=== PATIENT | female | born 1985 | race African-American/Black ===

== ENCOUNTER 2018-07-06 11:05 | Outpatient (CLI) | payer OTHER ==
--- NOTE | 2018-07-06 12:04 | ULT ---
FObstetrical ultrasound: 07/06/2018 COMPARISON:None available HISTORY: 32-year-old female undergoing evaluation of size, dates, and anatomy TECHNIQUE: Multiplanar grayscale sonographic imaging of the gravid uterus obtained. FINDINGS: Single live intrauterine gestation present demonstrating a vertex presentation. Cervical le ngth is estimated at 3.2 cm. Placenta is located in an anterior fundalposition, with no evidence for previa or abruption. The stomach, kidneys, and heart appear grossly unremarkable. heart rate is 156 bpm. Umbil ical cord insertion, urinary bladder, umbilical cord, nose and lips, spine, and intracranial contents appear grossly unremarkable. Amniotic fluid index is 16.6cm. biometry: Biparietal diameter is 6.7cm, correlating with a 27 weeks 1 daygestation Head circumference is 25.5cm correlating with a 27 weeks 6 daysgestation Abdominal circumference is 24.1cm correlating with a 28 weeks 3 daysday gestation Femur length is 4.5cm correlating with a 25 weeks 1 daysday gestation Average age based on ultrasound is 27 weeks 1 days with estimated date of delivery on 10/04/2018. Estimated weight is 1025 g +/- 150 g. Weight percentile based on last menstrual period is 94th percentile. IMPRESSION: Single intrauterine gestation as detailed above.
== END 2018-07-06 11:06 | disposition home or self-care (01) ==
LOC: BICULT 11:05
PROVIDERS: ATTEND Family Medicine
DX: Z34.82 Encounter for supervision of other normal pregnancy, second trimester (principal); Z3A.27 27 weeks gestation of pregnancy
CPT/HCPCS: 76805

== ENCOUNTER 2018-07-08 14:24 | Day surgery (SDC) | payer OTHER ==
[2018-07-08 15:27] VITALS: BP 116/77; TEMP 99.7; BMI 47.9
--- NOTE | 2018-07-08 15:56 | PDOC.LDHP ---
Labor and Delivery H&P Chief complaint: contractions, abdominal pain HPI: 32 @27wks here for contractions. States her contractions started yesterday, but hasn't been timing them. She can't tell how frequent they are apart. She denies LOF, VB, dysuria, vaginal discharge. Endorses good movement. Current gestational age (weeks): 27 Due date: 10/07/18 Dating criteria: second trimester ultrasound Grav: 3 Para: 3 (1103) OB History Details: X2 hx of PPROM with twin gestation @ 32 weeks, two males First @ 38wks to a male, no complications Current complications: none Abnormal US findings: No Past Medical History: Anemia of Current medications: pre- vitamins, iron Previous surgical history: none Allergies/Adverse Reactions: Allergies Allergy/AdvReac Type Severity Reaction Status Date / Time No Known Allergies Allergy Unverified 07/08/18 15:27 Social history: none - Physical Exam Vital signs reviewed and normal: yes General: NAD Heart: RRR Lungs: CTAB Extremeties: no edema [place] contractions every: reactive; not diana on the monitor - Vaginal Exam cm dilated: 0 (closed/thick/high) - Assessment 32 yo @ 27wks with contractions: - Plan -: #1)sIUP #2)Abdominal pain/suprapubic pressure vs contractions -rule out labor -pt being monitored on the NST, cervical check: closed/thick/high -ordered UA, VP3 for other etiologies of pain/contractions -encouraged po hydration
[2018-07-08 16:58] LABS: Bilirubin Negative (Negative); Blood, Urine Negative (Negative); Clarity CLEAR (Clear); Glucose, Urine (Dipstick) Negative (Negative); Leukocyte Negative (Negative); Nitrite Negative (Negative); Protein, Urine (Dipstick) Trace mg/dL (Neg-Trace); Specific Gravity, Urine 1.023 (1.002-1.036)
[2018-07-08 16:59] LABS: Bacteria/HPF None Seen HPF (None Seen); Hyaline Casts/LPF 4-6 HYALINE CAST LPF (0-3 Hyaline); Pathc Cast-AUWi Flag 1.08 (0-2.49); RBC/HPF 0-3 HPF (0-3); WBC/HPF 0-3 HPF (0-3)
== END 2018-07-08 17:20 | disposition home or self-care (01) ==
LOC: L&D/OP 14:24 → ERS 14:24 → L&D/OP 14:24 → EDSTATUS 14:35 → L&D/OP 17:20
PROVIDERS: ATTEND Family Medicine
DX: O47.1 False labor at or after 37 completed weeks of gestation (principal); O99.012 Anemia complicating pregnancy, second trimester; Z3A.27 27 weeks gestation of pregnancy
CPT/HCPCS: 81001; 87480; 87510; 87660; 99284

== ENCOUNTER 2018-07-23 10:29 | Observation (INO) | payer OTHER ==
[2018-07-23 11:24] VITALS: BMI 46.7
[2018-07-23 12:56] LABS: #Lymphocytes 1.9 thou/uL (1.20-3.40); #Monocytes 0.7 thou/uL (0.11-0.59); #Neutrophils 4.9 thou/uL (1.40-6.50); %Basophils 0.4 % (0.0-1.0); %Eosinophils 0.5 % (0.0-10.0); %Lymphocytes 25.2 % (21.0-51.0); %Monocytes 9.6 % (0.0-10.0); %Neutrophils 64.3 % (42.0-75.0); Hemoglobin 10.9 g/dL (12.0-16.0); Mean Corpuscular HGB CONC 32.7 g/dL (32.0-36.0); Mean Corpuscular Hemoglobin 27.4 pg (27.0-31.0); Mean Corpuscular Volume 83.9 fL (78.0-98.0); Mean Platelet Volume 8.2 fL (7.4-10.4); Platelet Count 253 thou/uL (130-400); RBC Distribution Width 15.8 % (11.5-14.5); Red Blood Cell (RBC) Count 3.96 mill/uL (4.20-5.40); White Blood Cell (WBC) Count 7.6 thou/uL (4.8-10.8)
--- NOTE | 2018-07-23 13:01 | ULT ---
OB ULTRASOUND: HISTORY: Preeclampsia. FINDINGS: A single live intrauterine gestation is seen with measurements corresponding to an estimated gestatio nal age of 29 weeks 4 days and DANA at 10/04/2018. The estimated weight measures 1428 gm or 3 adolfo nds and 2 ounces. This corresponds to a percentile of 39 by Hadlock criteria. measurements are as follows: BPD 7.31 cm, 29 weeks 2 days HC 27.16 cm, 29 weeks 4 days AC 25.71 cm, 29 weeks 6 days FL 5.57 cm, 29 weeks 2 days JUANA measures 16.9 cm. The placenta is anteriorly located without evidence of placenta previa. heart rate measures 140 b.p.m. The peak systolic velocity in the umbilical artery measures 71 cm/s with an end-diastolic velocity of 25 cm/s and an S-D ratio of 2.82. The anatomy is not satisfactorily visualized/evaluated. IMPRESSION: Single live intrauterine of 29 weeks 4 days estimated gestational age and estimated date of delivery at 10/04/2018. POS: [facility]
[2018-07-23 13:10] LABS: Creatinine, Urine 243.64 mg/dL (47-110)
[2018-07-23 13:21] LABS: ALT (SGPT) 11 U/L (8-55); AST (SGOT) 14 U/L (5-34); Albumin 2.9 g/dL (3.5-5.0); Alkaline Phosphatase 227 U/L (40-150); Anion Gap 12 mmol/L (10-20); BUN (Urea Nitrogen) 8 mg/dL (7.0-18.7); Bilirubin, Total Less than 0.2 mg/dL (0.2-1.2); Calc. Creatinine Clearance 228 mL/min (70-130); Calcium 9.5 mg/dL (7.8-10.44); Carbon Dioxide 21 mmol/L (22-29); Chloride 107 mmol/L (98-107); Estimated GFR-MDRD Greater than 90; Globulin 3.7 g/dL (2.4-3.5); Glucose 62 mg/dL (70-105); Potassium 3.9 mmol/L (3.5-5.1); Protein, Total 6.6 g/dL (6.0-8.3); Sodium 136 mmol/L (136-145); Uric Acid 3.9 mg/dL (2.6-6.0)
[2018-07-23] MEDS ORDERED: Acetaminophen 500 MG TAB PO PRN (19:18)
[2018-07-23] MEDS ORDERED: Loratadine 10 MG TAB PO PRN (19:19)
[2018-07-24 15:56] LABS: Urine Total Volume 2150 mL (600-1600)
[2018-07-24] MEDS ORDERED: Betamet Acet/Betamet Na Ph 30 MG/5 ML VIAL IM SCH (16:00)
[2018-07-24 16:17] LABS: Protein - 24 Hr 430 mg/24 hr (Less than 300); Protein, Urine 20 mg/dL (1-14)
[2018-07-25 11:41] VITALS: BP 129/65; TEMP 98.7
[2018-07-25] MEDS ORDERED: Betamet Acet/Betamet Na Ph 30 MG/5 ML VIAL IM SCH (16:00)
== END 2018-07-25 16:05 | disposition home or self-care (01) ==
LOC: L&D 10:29 → INTOOBSV 10:29 → 3SE 07-24 00:55
PROVIDERS: ADMIT Family Medicine; ATTEND Family Medicine
DX: O14.93 Unspecified pre-eclampsia, third trimester (principal); Z79.899 Other long term (current) drug therapy; Z3A.30 30 weeks gestation of pregnancy
CPT/HCPCS: 36415; 51701; 59025; 76700; 76805; 80053; 82570; 84156; 84550; 85025; 96372; A4353; G0378; J0702

== ENCOUNTER 2018-07-29 22:58 | Inpatient (IN) | payer OTHER ==
[2018-07-29 23:28] VITALS: BMI 46.7
[2018-07-29] MEDS ORDERED: Butorphanol Tartrate 1 MG/ML VIAL SLOW IVP PRN (23:45)
[2018-07-29] MEDS ORDERED: Ondansetron PF 4 MG/2 ML Vial IVP PRN (23:45)
[2018-07-29] MEDS ORDERED: Lactated Ringer's 1,000 ML IV SCH (23:45)
[2018-07-29] MEDS ORDERED: Promethazine HCl 25 MG/ML VIAL IM PRN (23:45)
[2018-07-29] MEDS ORDERED: Metoclopramide HCl 10 MG/2 ML VIAL IVP SCH (23:45)
[2018-07-29] MEDS ORDERED: Acetaminophen 500 MG TAB PO PRN (23:47)
[2018-07-29] MEDS ORDERED: diphenhydrAMINE 25 MG CAP PO PRN (23:48)
--- NOTE | 2018-07-29 23:55 | PDOC.LDHP ---
Labor and Delivery H&P Chief complaint: other (High BP at home and ZENDEJAS) HPI: Patient of Dr Murphy Time: 2355 Location: L&D HPI: 32 yo AA (twins x 1 in past delivered vaginal) at 30 weeks 4 days, here last week for BP obs. her 24 hour urine protein last week was 430mg/24. Labs were otherwise normal then. She states she had BP of 170 at home, and headache. BPs here 134/80 and 144/82. No meds for HTN in past Review of Systems: complete ROS performed and as per HPI Current gestational age (weeks): 30 (4 days) Dating criteria: last menstrual period Grav: 3 Para: 2 OB History Details: One set of twins, vaginal Current complications: other (Preeclampsia) Abnormal US findings: No Current medications: pre- vitamins Previous surgical history: none Allergies/Adverse Reactions: Allergies Allergy/AdvReac Type Severity Reaction Status Date / Time No Known Allergies Allergy Verified 07/29/18 23:29 Social history: none - Physical Exam Abnormal vital signs: 144/81 General: NAD Heart: RRR Lungs: CTAB Abdomen: gravid Extremeties: no edema FHT: category 1 [place] contractions every: no ctx - Assessment 30 weeks 4 days, multip, with preeclampsia (last 24 hour urine TP was 430mg). ZENDEJAS this pm. - Plan Plan: admit to L&D, other (I have admitted her for BP evaluation. Steroids given recently. I have reordered CMP and CBC but no UP as already known to be proteinuric. I will give meds for ZENDEJAS. I discussed with her and the family that we will try conservative management for as long as we can. She may require delivery at 34 weeks, if she lasts that long without persistent severe criteria. BPP ordered as survellance. I will give reglan and benadryl for headache care.)
[2018-07-30 00:35] LABS: Hemoglobin 10.7 g/dL (12.0-16.0); Mean Corpuscular HGB CONC 32.4 g/dL (32.0-36.0); Mean Corpuscular Hemoglobin 27.6 pg (27.0-31.0); Platelet Count 259 thou/uL (130-400); RBC Distribution Width 16.1 % (11.5-14.5); Red Blood Cell (RBC) Count 3.88 mill/uL (4.20-5.40); White Blood Cell (WBC) Count 9.2 thou/uL (4.8-10.8)
[2018-07-30 00:50] LABS: ALT (SGPT) 8 U/L (8-55); AST (SGOT) 9 U/L (5-34); Albumin 2.8 g/dL (3.5-5.0); Alkaline Phosphatase 207 U/L (40-150); Anion Gap 12 mmol/L (10-20); BUN (Urea Nitrogen) 8 mg/dL (7.0-18.7); Bilirubin, Total Less than 0.2 mg/dL (0.2-1.2); Calc. Creatinine Clearance 237 mL/min (70-130); Calcium 8.8 mg/dL (7.8-10.44); Carbon Dioxide 21 mmol/L (22-29); Chloride 109 mmol/L (98-107); Estimated GFR-MDRD Greater than 90; Globulin 3.4 g/dL (2.4-3.5); Glucose 108 mg/dL (70-105); Protein, Total 6.2 g/dL (6.0-8.3); Sodium 138 mmol/L (136-145)
[2018-07-30 01:06] LABS: Syphilis Antibody Nonreactive (Nonreactive); Syphilis Antibody Index 0.04 S/CO (<1.00 Non-Reactive)
[2018-07-30 01:45] LABS: HBSAg Index 0.28 S/CO (0-0.99); HIV (1/2) Antibody/Antigen Non-Reactive (NonReactive); Hep B Surf Ag Non-Reactive S/CO (NonReactive)
--- NOTE | 2018-07-30 08:38 | ULT ---
PRELIMINARY REPORT/[facility]/EMERGENCY AFTER HOURS PROCEDURE: EXAM: US Biophysical Profile Without Non-Stress Test EXAM DATE/TIME: 07/30/2018 1:39 AM CLINICAL HISTORY: 32 years old, female; Signs and symptoms; Other: Pih, eval well being; TECHNIQUE: Imaging protocol: US biophysical profile without non-stress testing. COMPARISON: No relevant prior studies available. FINDINGS: Other findings: Presentation: Vertex Amniotic fluid: 11.8 cm. Normal volume. not visualized well Breathin/2 Gross body movements: 2/2 tone: 2/2 Qualitative amniotic fluid: 2/2 Fetus: Single Heart rate: 143 bpm Placenta: Anterior. No abruption. Uterus: Unremarkable. No myometrial mass. Cervix: 4.1 cm as visualized. Closed. Free fluid: No free fluid. IMPRESSION: 1. Single viable intrauterine with EGA 30 weeks, 4 days by dates. 2. Biophysical 11/08. 3. No acute findings. Thank you for allowing us to participate in the care of your patient. Dictated and Authenticated by: Balaji Vazquez MD 07/30/2018 2:47 AM Central Time ([place] & [place]) FINAL REPORT EMERGENCY AFTER HOURS BIOPHYSICAL PROFILE: I agree with the preliminary report provided by [facility]. Please see the preliminary report for further d etails. POS:
[2018-07-30 18:00] VITALS: BP 136/71; TEMP 98.2
== END 2018-07-30 17:07 | disposition home or self-care (01) | DRG 833 ==
LOC: L&D/OP 22:58 → L&D 07-30 00:10
PROVIDERS: ADMIT Family Medicine; ATTEND Family Medicine
DX: O14.90 Unspecified pre-eclampsia, unspecified trimester (principal); Z3A.30 30 weeks gestation of pregnancy
CPT/HCPCS: 36415; 76819; 80053; 85027; 86780; 86850; 86900; 86901; 87340; 87389; 99285; J2765; Q0163

== ENCOUNTER 2018-08-06 10:32 | Outpatient (CLI) | payer OTHER ==
--- NOTE | 2018-08-06 11:18 | ULT ---
OBSTETRIC SONOGRAM LIMITED UMBILICAL ARTERY DUPLEX EXAM SONOGRAPHIC BIOPHYSICAL PROFILE EXAM: HISTORY: Preeclampsia. FINDINGS: Single intrauterine gestation in cephalic presentation. The cervix is closed and 3.5 cm. Placenta is anterior. Amniotic fluid index 12.3. Good tone, breathing movement, and gross movements were demonstrated . Good color and spectral Doppler flow within the umbilical artery. S/D ratio 3.3 (within normal limits) Resistive index 0.7 (approaches 95th percentile) Pulsatility index 1.2 (approaches 95th percentile) IMPRESSION: 1. Sonographic biophysical profile score 8/8. 2. Elevated resistive index and pulsatility index of the umbilical artery, approaching 95th percenti le. Transcribed Date/Time: 08/06/2018 11:44 AM
--- NOTE | 2018-08-08 13:40 | ULT ---
OBSTETRIC SONOGRAM LIMITED UMBILICAL ARTERY DUPLEX EXAM SONOGRAPHIC BIOPHYSICAL PROFILE EXAM: HISTORY: Preeclampsia. FINDINGS: Single intrauterine gestation in cephalic presentation. The cervix is closed and 3.5 cm. Placenta is anterior. Amniotic fluid index 12.3. Good tone, breathing movement, and gross movements were demonstrated . Good color and spectral Doppler flow within the umbilical artery. S/D ratio 3.3 (within normal limits) Resistive index 0.7 (approaches 95th percentile) Pulsatility index 1.2 (approaches 95th percentile) IMPRESSION: 1. Sonographic biophysical profile score 8/8. 2. Elevated resistive index and pulsatility index of the umbilical artery, approaching 95th percenti le. Transcribed Date/Time: 08/08/2018 1:40 PM
== END 2018-08-06 10:33 | disposition home or self-care (01) ==
LOC: ULT 10:32
PROVIDERS: ATTEND Family Medicine
DX: O16.3 Unspecified maternal hypertension, third trimester (principal)
CPT/HCPCS: 76700; 76819

== ENCOUNTER 2018-08-19 21:56 | Inpatient (IN) | payer OTHER ==
[2018-08-19 22:28] VITALS: BMI 50.0
[2018-08-19 22:53] LABS: Amnisure Test RUPTURE DETECTED (No Rupture)
[2018-08-19 22:54] LABS: Amnisure Internal Control QC ACCEPTABLE (ACCEPTABLE)
[2018-08-19] MEDS ORDERED: Promethazine HCl 25 MG/ML VIAL IM PRN (23:12)
[2018-08-19] MEDS ORDERED: Acetaminophen 500 MG TAB PO PRN (23:12)
[2018-08-19] MEDS ORDERED: Ondansetron PF 4 MG/2 ML Vial IVP PRN (23:12)
[2018-08-19] MEDS ORDERED: Azithromycin 250 MG TAB PO SCH (23:15)
[2018-08-19] MEDS: Lactated Ringer's 1,000 ML IV SCH (23:59)
[2018-08-20] MEDS: Betamet Acet/Betamet Na Ph 30 MG/5 ML VIAL IM SCH (00:24)
[2018-08-20] MEDS: Ampicillin 2 GM in Sodium Chloride 0.9% 100 ML IVPB SCH ×4 (00:27→18:05)
[2018-08-20 00:54] LABS: Hemoglobin 12.7 g/dL (12.0-16.0); Mean Corpuscular HGB CONC 30.5 g/dL (32.0-36.0); Mean Corpuscular Hemoglobin 27.4 pg (27.0-31.0); Mean Corpuscular Volume 89.8 fL (78.0-98.0); Mean Platelet Volume 8.5 fL (7.4-10.4); Platelet Count 223 thou/uL (130-400); RBC Distribution Width 16.2 % (11.5-14.5); Red Blood Cell (RBC) Count 4.64 mill/uL (4.20-5.40)
[2018-08-20 01:28] LABS: HBSAg Index 0.36 S/CO (0-0.99); HIV (1/2) Antibody/Antigen Non-Reactive (NonReactive); Hep B Surf Ag Non-Reactive S/CO (NonReactive)
[2018-08-20 04:47] LABS: Syphilis Antibody Nonreactive (Nonreactive); Syphilis Antibody Index 0.04 S/CO (<1.00 Non-Reactive)
[2018-08-20] MEDS: Lactated Ringer's 1,000 ML IV SCH (09:35)
[2018-08-21] MEDS: Betamet Acet/Betamet Na Ph 30 MG/5 ML VIAL IM SCH (00:17)
[2018-08-21] MEDS: Ampicillin 2 GM in Sodium Chloride 0.9% 100 ML IVPB SCH ×4 (00:18→17:51)
[2018-08-21] MEDS: Lactated Ringer's 1,000 ML IV SCH ×3 (00:18→15:50)
[2018-08-22] MEDS: Ampicillin 2 GM in Sodium Chloride 0.9% 100 ML IVPB SCH ×2 (00:07→06:21)
[2018-08-22] MEDS: AMOXicillin 250 MG CAP PO SCH ×3 (08:48→20:09)
[2018-08-22 17:42] LABS: Bilirubin Negative (Negative); Blood, Urine Negative (Negative); Clarity CLOUDY (Clear); Glucose, Urine (Dipstick) Negative (Negative); Leukocyte Negative (Negative); Nitrite Negative (Negative); Protein, Urine (Dipstick) Negative (Neg-Trace); Specific Gravity, Urine 1.011 (1.002-1.036); Urobilinogen 0.2 mg/dL (0.2-1.0); pH, Urine 7.5 (5.0-9.0)
[2018-08-22 17:46] LABS: Bacteria/HPF None Seen HPF (None Seen); Hyaline Casts/LPF 0-3 HYALINE CAST LPF (0-3 Hyaline); WBC/HPF 0-3 HPF (0-3)
[2018-08-22 18:08] LABS: RBC/HPF 0-3 HPF (0-3)
[2018-08-22 18:09] LABS: Urine Culture Reflex No No
[2018-08-23] MEDS: Betamet Acet/Betamet Na Ph 30 MG/5 ML VIAL IM SCH ×3 (00:02→23:26)
[2018-08-23] MEDS: Lactated Ringer's 1,000 ML IV SCH (00:55)
[2018-08-23] MEDS: AMOXicillin 250 MG CAP PO SCH ×3 (09:54→22:56)
[2018-08-24] MEDS: AMOXicillin 250 MG CAP PO SCH ×3 (12:55→21:10)
[2018-08-24] MEDS: Betamet Acet/Betamet Na Ph 30 MG/5 ML VIAL IM SCH (23:15)
[2018-08-25] MEDS ORDERED: HYDROcodone/Acetaminophen 5/325 mg Tablet PO PRN (11:22)
[2018-08-25] MEDS ORDERED: Bisacodyl 10 MG SUPP PR PRN (11:22)
[2018-08-25] MEDS ORDERED: Milk Of Magnesia 30 ML UDCUP PO PRN (11:22)
[2018-08-25] MEDS ORDERED: Lanolin Ointment 7 GM TUBE TOP PRN (11:22)
[2018-08-25] MEDS: Carboprost 250 MCG/ML AMP ONE ×2 (12:01→12:20)
[2018-08-25] MEDS: Misoprostol 200 MCG TAB ONE ×2 (12:03→12:19)
--- NOTE | 2018-08-25 12:18 | PDOC.EVN ---
Event Note - Event Note Event Note: JOSELYN Cardona Time: 1200 Called to assess VB PP LDR4 Note at 1210 Called to LDR 4 for PP VB after by DR urrutia earlier this pm. Patient does not have an IV as it was difficult to place even per Anesthesia. She received IM pitocin after delivery. Prior to transport to , patient passed some clots. I did not see the bleeding episode but report was given to me by Elizabeth, her RN. Weight of pased blood on pads pending for QBL. I arrived within one minute of call to assess bleeding. She had recieved per protocol 800mcg Cytotec NE and Hemobate x 1 (no methergine due to BP issues). My exam: decresaed VB now to minimal, no lacs noted, ROLY on BME firm. I have ordered an I/O to r/o urinary retention as a factor. Obs x 2 hours now prior to floor transport. Await QBL from pads. Vitals stable, patient alert and without complaints.
[2018-08-25] MEDS ORDERED: Carboprost 250 MCG/ML AMP ONE (12:19)
[2018-08-25] MEDS: Oxytocin 10 UNITS/ML VIAL ONE ×2 (12:20→14:23)
[2018-08-25] MEDS: AMOXicillin 250 MG CAP PO SCH (12:20)
--- NOTE | 2018-08-25 12:21 | PDOC.EVN ---
Event Note - Event Note Event Note: OB CERTIFIED DRIVER EXAMINER Returned to LDR4 at 1215 for recurrent VB.. This time, I was able to express about 350ml (EBL) of clot from vigorous ROLY massage. IV now in use....for IVFs and oxytocin OK to give hemabate again (15 minutes from first time), I/O being done now, and I have ordered another CBC now. Suspect ROLY atony. If not better in 30 minutes, I will order TVU
[2018-08-25] MEDS ORDERED: NS / Oxytocin 40 units/1000ml 1,000 ML IV SCH ×2 (12:30→14:15)
[2018-08-25 13:44] LABS: Hemoglobin 10.6 g/dL (12.0-16.0); Mean Corpuscular HGB CONC 33.6 g/dL (32.0-36.0); Mean Corpuscular Hemoglobin 28.1 pg (27.0-31.0); Mean Corpuscular Volume 83.8 fL (78.0-98.0); Mean Platelet Volume 8.7 fL (7.4-10.4); Platelet Count 245 thou/uL (130-400); RBC Distribution Width 15.6 % (11.5-14.5); Red Blood Cell (RBC) Count 3.78 mill/uL (4.20-5.40); White Blood Cell (WBC) Count 14.3 thou/uL (4.8-10.8)
[2018-08-25] MEDS ORDERED: Diphenoxylate HCl/Atropine Tablet PO SCH (14:00)
[2018-08-25] MEDS ORDERED: NS / Oxytocin 40 units/1000ml 1,000 ML IV PRN (14:12)
[2018-08-25] MEDS: Ibuprofen 800 MG TAB PO SCH ×2 (15:27→16:17)
[2018-08-25] MEDS: Ferrous Sulfate 325 MG TAB PO SCH (16:17)
[2018-08-25] MEDS: Docusate Calcium (SURFAK) 240 MG CAP PO SCH (21:24)
[2018-08-25] MEDS: cloNIDine 0.1 MG TAB PO PRN (22:09)
[2018-08-26] MEDS: Ibuprofen 800 MG TAB PO SCH ×4 (02:43→21:51)
[2018-08-26 06:25] LABS: Hemoglobin 9.7 g/dL (12.0-16.0); Mean Corpuscular HGB CONC 32.5 g/dL (32.0-36.0); Mean Corpuscular Hemoglobin 27.4 pg (27.0-31.0); Mean Corpuscular Volume 84.5 fL (78.0-98.0); Mean Platelet Volume 9.1 fL (7.4-10.4); Platelet Count 239 thou/uL (130-400); Red Blood Cell (RBC) Count 3.54 mill/uL (4.20-5.40); White Blood Cell (WBC) Count 18.4 thou/uL (4.8-10.8)
[2018-08-26] MEDS: Prenatal Vitamin 1 TAB PO SCH (08:51)
[2018-08-26] MEDS: Docusate Calcium (SURFAK) 240 MG CAP PO SCH ×2 (08:51→21:51)
[2018-08-26] MEDS ORDERED: Adacel (T-DAP) 0.5 ML SYRINGE IM ONE (09:00)
[2018-08-26] MEDS: Ferrous Sulfate 325 MG TAB PO SCH ×2 (09:16→17:49)
[2018-08-26] MEDS: cloNIDine 0.1 MG TAB PO PRN ×2 (16:57→19:57)
[2018-08-27] MEDS: Ibuprofen 800 MG TAB PO SCH ×2 (06:31→14:36)
[2018-08-27] MEDS: Docusate Calcium (SURFAK) 240 MG CAP PO SCH (09:27)
[2018-08-27] MEDS: Ferrous Sulfate 325 MG TAB PO SCH ×2 (09:27→18:21)
[2018-08-27] MEDS: Prenatal Vitamin 1 TAB PO SCH (09:27)
[2018-08-27] MEDS ORDERED: Measles/Mumps/Rubella 10 MCG/0.5 ML VIAL SC ONE (11:45)
[2018-08-27 17:07] VITALS: BP 134/78; TEMP 98.5
== END 2018-08-27 18:26 | disposition home or self-care (01) | DRG 805 ==
LOC: L&D/OP 21:56 → L&D 23:25 → 3SE 08-23 14:09 → L&D 08-25 08:32 → 3SW 08-25 16:06
PROVIDERS: ADMIT Family Medicine; ATTEND Family Medicine
PROC: 10E0XZZ Delivery of Products of Conception, External Approach (ICD-10-PCS; principal; 2018-08-19)
PROC: 3E0P7VZ Introduction of Hormone into Female Reproductive, Via Natural or Artificial Opening (ICD-10-PCS; 2018-08-19)
PROC: 3E033VJ Introduction of Other Hormone into Peripheral Vein, Percutaneous Approach (ICD-10-PCS; 2018-08-19)
DX: O42.913 Preterm premature rupture of membranes, unspecified as to length of time between rupture and onset of labor, third trimester (principal); O60.14X0 Preterm labor third trimester with preterm delivery third trimester, not applicable or unspecified; Z37.2 Twins, both liveborn; Z3A.34 34 weeks gestation of pregnancy; O14.04 Mild to moderate pre-eclampsia, complicating childbirth; O30.003 Twin pregnancy, unspecified number of placenta and unspecified number of amniotic sacs, third trimester; O62.3 Precipitate labor
CPT/HCPCS: 36415; 51702; 59025; 81001; 84112; 85027; 86780; 86850; 86900; 86901; 87340; 87389; 90707; 90715; 99285; J0290; J0702; J2590; J3490